=== PATIENT | male | born 1955 | race Caucasian/White ===

== ENCOUNTER 2024-10-30 07:21 | Day surgery (SDC) | payer MEDICARE ==
[~2024-10-30] VITALS: Ht 180.3 cm; Wt 61.7 kg
[~2024-10-30 07:21] MED LIST: XALATAN 0.005%2.5 ML OP
[2024-10-30] MEDS ORDERED: FAMOTIDINE 10MG/ML 2ML SDV IV ONE (07:46)
[2024-10-30] MEDS ORDERED: LACTATED RINGER'S 1,000 ML IV ONE (07:46)
[2024-10-30 10:20] VITALS: BP 106/56
[2024-10-30] MEDS ORDERED: PROPOFOL 200 MG/20 ML VIAL IV ONE (13:42)
[2024-10-30] MEDS ORDERED: GLYCOPYRROLATE 0.2 MG/ML IV ONE (13:42)
[2024-10-30] MEDS ORDERED: LIDOCAINE HCL 2% 2ML SDV IV ONE (13:42)
== END 2024-10-30 16:40 | disposition home or self-care (01) ==
LOC: ENDO 07:21 → ORM 09:45 → ENDO 16:40
PROVIDERS: ATTEND Surgery
PROC: 0DJD8ZZ Inspection of Lower Intestinal Tract, Via Natural or Artificial Opening Endoscopic (ICD-10-PCS; principal; 2024-10-30)
DX: Z12.11 Encounter for screening for malignant neoplasm of colon (principal); K64.8 Other hemorrhoids; Z86.0100 Personal history of colon polyps, unspecified; Z80.0 Family history of malignant neoplasm of digestive organs
CPT/HCPCS: J1596